=== PATIENT | female | born 1975 | race Caucasian/White ===

== ENCOUNTER 2018-09-24 12:28 | Inpatient (IN) | payer OTHER, SELFPAY ==
[2018-09-24] VITALS (15 sets, daily range): BP systolic 135–157; BP diastolic 79–91; PULSE 104–130; RESP 16–20; TEMP 37.3–39.7; O2SAT 95–96; BMI 40.3; BMI 41.3
--- NOTE | 2018-09-24 13:27 | EKG12_ITS ---
Test Reason : FEVER Blood Pressure : / mmHG Vent. Rate : 122 BPM Atrial Rate : 122 BPM P-R Int : 168 ms QRS Dur : 092 ms QT Int : 298 ms P-R-T Axes : 033 -33 070 degrees QTc Int : 424 ms Sinus tachycardia Left axis deviation Abnormal ECG Confirmed by MITCHELL PRAKASH, MORENA ([id number]), commercial production editor FATOU DAO ([id number]) on 09/27/2018 7:53:20 AM Referred By: CASANDRA Confirmed By:MORENA MEDRANO MD
--- NOTE | 2018-09-24 13:27 | RAD_ITS ---
STUDY: X-RAY CHEST REASON FOR EXAM: Female, 42 years old. Fever since TECHNIQUE: AP COMPARISON: None. FINDINGS: Neck or EKG The lungs are clear and expanded. There is no demonstrated pleural abnormality. Normal size heart. Normal mediastinum and ferny. Normal visualized pulmonary arteries. Normal visualized aortic arch and descending thoracic aorta. Normal visualized thoracic spine. Normal visualized ribs, clavicles, and shoulders. There is no demonstrated abnormality of the visualized soft tissue structures of the upper abdomen. RAD/Chest 1 View (Portable) IMPRESSION: Nonacute portable x-ray examination of the chest. Electronically Signed: Enoch Rader MD at 14:01 EDT , Service support ,
[2018-09-24] MEDS: Acetaminophen 500 MG Tablet 1000 MG PO (13:43)
[2018-09-24] MEDS: 0.9% Normal Saline 1,000 ML 150 ML IV ×3 (13:45→23:13)
[2018-09-24 13:47] LABS: Absolute Lymphocyte Count 0.77 X10^3/ul (0.83-4.51); Absolute Neutrophil Count 12.4 X10^3/uL (2.0-7.7); Basophil# 0.01 X10^3/uL; Basophil% 0.1 % (0-1); Hematocrit 41.1 % (37-47); Hemoglobin 14.1 g/dl (12.0-15.0); Lymphocyte # 0.77 X10^3/ul (4.0); Lymphocyte % 5.4 % (19-41); Mean Corp Hgb Conc 34.3 g/gl (32-36); Mean Corpuscular Hgb 30.7 pg (27.0-32.0); Mean Corpuscular Volume 89.5 fL (81-99); Mean Platelet Vol. 9.6 fl (6.2-12.0); Monocyte# 0.92 X10^3/uL; Monocyte% 6.5 % (0-10); Neutrophil # 12.39 X10^3/uL (2.7-7.7); Neutrophil % 87.7 % (47-70); Platelet Count 178 K/mm3 (150-450); RBC Distribution Width CV 13.4 % (11.6-14.6); RBC Distribution Width SD 43.9 fl (35.1-43.9); Red Blood Count 4.59 M/mm3 (4.2-5.4); White Blood Count 14.1 K/mm3 (4.4-11.0)
[2018-09-24 13:51] LABS: International Normalized Ratio 1.2; Prothrombin Time (Protime)PT. 14.6 SECONDS (11.7-14.9)
[2018-09-24 13:51] LABS: Bacteria 0 SEEN /hpf (None Seen); Color, Urine Yellow (Yellow); Glucose, Dipstick Normal (Normal); Leukocyte Esterase-Dipstick 25 /ul (Negative); Mucous, Urine 0 SEEN /hpf (<or=2+); Nitrite-Dipstick Negative (Negative); Occult Blood-Urine 50 /ul (Negative); Protein-Dipstick 100 mg/dl (Negative); Red Blood Cells-Urine 0 SEEN /hpf (0-5); Urine Clarity Clear (Clear); Urine Urobilinogen 12 mg/dl (Normal); Urine pH 6.5 (5.0 - 8.0); White Blood Cells 0 SEEN /hpf (0-5)
[2018-09-24 13:52] LABS: Partial Thromboplast Time 30.2 Seconds (24.1-36.2)
[2018-09-24 13:57] LABS: Urine Bilirubin Dipstick 1 mg/dL (Negative)
[2018-09-24 13:58] LABS: Ketone-Dipstick 150 mg/dl (Negative)
[2018-09-24 14:00] LABS: ALB/GLOB Ratio 0.7 RATIO (0.9-2.4); AST(SGOT) 15 U/L (15-37); Alanine Aminotransfer ALT/SGPT 26 U/L (13-56); Albumin, Serum 3.2 g/dL (3.2-5.0); Alkaline Phosphatase 80 U/L (45-117); Anion Gap 6 (5-15); BUN 9 mg/dL (7-18); BUN/Creat Ratio 8.6 RATIO (10-20); Calcium,Total 8.5 mg/dL (8.5-10.1); Chloride 99 mmol/L (98-107); Creatinine, Serum 1.05 mg/dL (0.55-1.02); EST Glomerular Filtration Rate 61 mL/min (>60); Est Glom Filt Rate - Afr Amer 74 mL/min (>60); Estimated Creatinine Clearance 66.67 ml/min; Globulin 4.6 g/dL (2.2-4.2); Glucose 117 mg/dL (74-106); POSITIVE COUNT NO; POSITIVE DIFFERENTIAL NO; POSITIVE MORPHOLOGY NO; Potassium 3.5 mmol/L (3.5-5.1); Protein, Total 7.8 g/dL (6.4-8.2); Sodium Level 131 mmol/L (136-145)
[2018-09-24 14:00] LABS: Squamous Epithelial Cells - UA 5-10 SEEN /hpf (5-10)
--- NOTE | 2018-09-24 14:01 | ED.VISSUMM ---
- ER Visit Summary Date of Service: 09/24/18 Chief Complaint: Fever History of Present Illness: The patient is a 42 F who states that on evening she began to have a fever and chills. She states she is been trying to drink fluids but has not had much of an appetite. This morning fever continued and she noticed a large area of redness on the right lower extremity. She states that she believes she nicked herself shaving but that has been several days ago. Physical Examination: Patient is febrile 103.4 she is tachycardic at 122. Stable blood pressure 157/89 pulse ox 95% respirations are even and unlabored at 18 Gen: Well-nourished well-developed obese Head: Normocephalic atraumatic Eyes: Perrl EOMI ENT: TMs clear no rhinorrhea moist mucous membranes Neck: Supple no lymphadenopathy no JVD nontender CVS: Regular rate rhythm no murmurs normal S1-S2 Respiratory: No distress clear to auscultation bilaterally chest nontender Abdomen: Soft nontender nondistended normal bowel sounds no masses Back: Nontender Extremity: There is erythema of most of the skin of the right lower extremity. This does not involve the foot. There is also an area of erythema over the proximal lateral thigh. There are no bullae seen. Skin: Normal color no rash Neuro: alert orientated ?3 CN II-XII intact normal strength sensation reflexes gait cerebellar Psych: Normal affect normal mood Test Results: White count is elevated at 14. Creatinine 1.05. Lactic acid 1.5. Chest x-ray negative. Urinalysis showed ketones but no obvious infection. Blood cultures obtained. Emergency Department Course and Treatment: Patient received Tylenol and IV fluids. I do not have ability to obtain duplex ultrasound imaging of the leg for clot at the current time. Patient received vancomycin. In speaking with the patient she is concerned about worsening at home and her ability to rest with her children. Hospitalist has been contacted. Impression: 1. Right lower extremity cellulitis 2. Sepsis This note was generated with [employer] dictation software. It may contain incorrect words, spelling, and punctuation that were not noted in review of the chart prior to signing ED Disposition - Plan for ED Patient: Disposition: [facility]
--- NOTE | 2018-09-24 14:02 | ED.RN ---
URINE KETONES 150, DR. GUAJARDO AWARE.
[2018-09-24 14:21] LABS: Lactic Acid 1.5 mmol/L (0.4-2.0)
[2018-09-24] MEDS: 0.9% Normal Saline 1,000 ML 999 ML IV (14:43)
--- NOTE | 2018-09-24 14:49 | CT_ITS ---
STUDY: CT RIGHT RIGHT LOWER LEG WITH CONTRAST REASON FOR EXAM: Female, 42 years old. RADIATION DOSAGE (If Supplied By Facility): CTDIvol = ( 15.35 ) mGy, DLP = ( 1053.88 ) mGycm TECHNIQUE: Transaxial CT imaging of the knee was performed post contrast administration. The examination was performed with intravenous administration of 100 IV Isovue 370. Sagittal and coronal reformatted images provided. Individualized dose optimization techniques were used for this CT. COMPARISON: None. FINDINGS: Normal medial femoral condyle and medial tibial plateau. There is preservation of the articular joint space of the medial knee compartment. Normal lateral femoral condyle and lateral tibial plateau. There is preservation of the articular joint space of the lateral knee compartment. Normal proximal tibiofibular articulation. There is no joint effusion. There is no demonstrated abnormal enhancement. The quadriceps tendon is grossly normal. The patellar tendon is grossly normal. Normal Hoffa's fat pad. The tibia and fibula are intact without evidence of fracture or destructive bony process. There is soft tissue swelling of the anterior lower leg extending from the level of the patellar tendon insertion inferiorly to the ankle with some extension into the medial/lateral/posterior soft tissues more distally. No focal fluid collection is seen. Limited assessment of the infrapopliteal veins show filling defects within the right posterior tibial vein suggesting possibility of deep vein thrombosis. CT/Extremity Lower WITH Contrast IMPRESSION: 1. Nonspecific anterior dominant soft tissue swelling without focal fluid collection. 2. Possible infrapopliteal (posterior tibial) vein thrombus. Correlation with Doppler ultrasound is suggested. 3. No fracture, malalignment or destructive bony process. Electronically Signed: Enoch Rader MD at 15:47 EDT , Service support ,
--- NOTE | 2018-09-24 14:58 | PCM.HP.STD ---
History of Present Illness Date of Admission: 09/24/18 Chief Complaint: fever, chills, redness and swelling of RLE The patient is a 42 year old F with no significant past medical history. She was admitted to the ED on 09/24/2018 with a 2-day complaint of fever and chills as well as redness and swelling of her right lower extremity. Patient states fever and chills started and then 1 day ago she noticed the rash on her right lower extremity. Today she noticed that her right lower extremity was red and swollen. She did not notice any discharge. She also had assisted shortness of breath and racing of her heart so she decided to come into the ED. In the ED vitals were significant for temperature of 103.2 Fahrenheit, respiratory rate of 20 and pulse rate of 120. Chest x-ray showed no acute cardiopulmonary process. CMP showed sodium of 131 white cell count was elevated at 14. Lactic acid was 1.5. She has been admitted to be managed for sepsis due to cellulitis of the right lower extremity. 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 Denies: Anorexia, Weakness, Fatigue Eyes: Denies: Blurred vision HEENT: Denies: Head Aches, Sinus Congestion, Sinus Drainage Cardiovascular: Denies: Chest Pain, Palpitations Respiratory: Denies: Cough, Shortness of Breath, Shortness of breath at rest, Shortness of breath upon exertion, Sputum production Gastrointestinal: Denies: Abdominal Pain, Nausea, Vomiting Genitourinary: Denies: Dysuria Musculoskeletal: Denies: Joint Pain, Joint Tenderness Skin: Reports: Rash, Skin Changes Neurological: Denies: Numbness, Tingling, Focal weakness Psychiatric: Denies: Anxiety, Depression, Homicidal Ideations, Suicidal Ideations Hematologic/ Lymphatic: Denies: Easy Bruising, Easy Bleeding VTE Information - Inpt Only VTE Present on Admission: No VTE Pharm Prophylaxis ordered?: Yes - Physical Exam General: Alert, Oriented x3, Cooperative, No apparent distress HEENT: Atraumatic Oral: Moist Mucosa Neck: Supple, No JVD, Negative Carotid Bruits Lungs: Clear to auscultation, Normal air movement Cardiovascular: Regular rate, Regular Rhythm, Normal S1, Normal S2, No murmurs Abdomen: Bowel Sounds Present, Soft, Non Tender Extremities: No clubbing, No cyanosis, Capillary Refill Less than 3 Seconds, - - mild edema of RLE Skin: - - erythema and papular rash over her RLE (armstrong and calf) as well as over her right upper thigh. No visible discharge. Musculoskeletal: No Tenderness to Palpation of Joints or Extremities Lymphatic: No Cervical, Supraclavicular, or Inguinal Adenopathy Neurological: Cranial nerves II-XII grossly intact, Neuro grossly intact, Motor Exam 5/5 strength throughout Psych/Mental Status: Normal Affect, Appropriate, Alert and oriented to time, place, person, mood and affect Vital Signs Temp Pulse Resp BP Pulse Ox 103.2 F H 120 H 20 H 152/91 H 95 09/24/18 14:44 09/24/18 14:44 09/24/18 14:44 09/24/18 14:44 09/24/18 14:44 Oxygen Delivery Method Room Air Weight: 250 lb Body Mass Index (BMI) 40.3 Laboratory Tests Past 24 Hrs 09/24/18 09/24/18 09/24/18 12:45 13:32 13:32 WBC 14.1 H RBC 4.59 Hgb 14.1 Hct 41.1 MCV 89.5 MCH 30.7 MCHC 34.3 RDW 13.4 RDW Differential 43.9 Plt Count 178 MPV 9.6 Immature Gran % (Auto) 0.300 Neut % (Auto) 87.7 H Lymph % (Auto) 5.4 L [place] % (Auto) 6.5 Eos % (Auto) 0.0 Baso % (Auto) 0.1 Absolute Neuts (auto) 12.4 H Absolute Lymphs (auto) 0.77 L Total Counted Not Reportable PT 14.6 INR 1.2 APTT 30.2 Sodium Potassium Chloride Carbon Dioxide Anion Gap BUN Creatinine Estim Creat Clear Calc Est GFR (MDRD) Af Amer Est GFR (MDRD) Non-Af BUN/Creatinine Ratio Glucose Lactic Acid Calcium Total Bilirubin AST ALT Alkaline Phosphatase Troponin I Total Protein Albumin Globulin Albumin/Globulin Ratio Urine Color Yellow Urine Clarity Clear Urine pH 6.5 Ur Specific [place] 1.010 Urine Protein 100 H Urine Glucose (UA) Normal Urine Ketones 150 H Urine Occult Blood 50 H Urine Nitrite Negative Urine Bilirubin 1 H Urine Urobilinogen 12 H Ur Leukocyte Esterase 25 H Urine RBC 0 SEEN Urine WBC 0 SEEN Ur Squamous Epith Cells 5-10 SEEN Urine Bacteria 0 SEEN Urine Mucus 0 SEEN 09/24/18 09/24/18 13:32 13:32 WBC RBC Hgb Hct MCV MCH MCHC RDW RDW Differential Plt Count MPV Immature Gran % (Auto) Neut % (Auto) Lymph % (Auto) [place] % (Auto) Eos % (Auto) Baso % (Auto) Absolute Neuts (auto) Absolute Lymphs (auto) Total Counted PT INR APTT Sodium 131 L Potassium 3.5 Chloride 99 Carbon Dioxide 26.0 Anion Gap 6 BUN 9 Creatinine 1.05 H Estim Creat Clear Calc 66.67 Est GFR (MDRD) Af Amer 74 Est GFR (MDRD) Non-Af 61 BUN/Creatinine Ratio 8.6 L Glucose 117 H Lactic Acid 1.5 Calcium 8.5 Total Bilirubin 0.50 AST 15 ALT 26 Alkaline Phosphatase 80 Troponin I < 0.015 Total Protein 7.8 Albumin 3.2 Globulin 4.6 H Albumin/Globulin Ratio 0.7 L Urine Color Urine Clarity Urine pH Ur Specific [place] Urine Protein Urine Glucose (UA) Urine Ketones Urine Occult Blood Urine Nitrite Urine Bilirubin Urine Urobilinogen Ur Leukocyte Esterase Urine RBC Urine WBC Ur Squamous Epith Cells Urine Bacteria Urine Mucus Assessment/Plan 42-year-old female admitted with a complaint of right lower extremity swelling, fever and chills. 1. Sepsis due to cellulitis of the RLE admit to PCU with telemetry SIRS criteria is 4/4 (fever, tachypnea, tachycardia, leucocytosis). Get blood cultures. WIll get Ct of RLE to assess for possible abscess o/a of rapid swelling and onset of symptoms Keep the right lower extremity elevated. Duplex of the right lower extremity. IV vancomycin. Tylenol as needed for fever. 2. Hyponatremia: Sodium is 131. Likely due to hypovolemic hyponatremia. Will hydrate with IV load and monitor. 3. Elevated creatinine: Does not meet criteria for LEXUS. Creatinine is 1.05. Will hydrate with IV fluids and monitor. DVT prophylaxis: Lovenox Code Visit Inpatient E&M: 84896 Init Hosp L3
--- NOTE | 2018-09-24 15:04 | HP.PCM_ITS ---
History of Present Illness Date of Admission: 09/24/18 Chief Complaint: fever, chills, redness and swelling of RLE The patient is a 42 year old F with no significant past medical history. She was admitted to the ED on 09/24/2018 with a 2-day complaint of fever and chills as well as redness and swelling of her right lower extremity. Patient states fever and chills started and then 1 day ago she noticed the rash on her right lower extremity. Today she noticed that her right lower extremity was red and swoll en. She did not notice any discharge. She also had assisted shortness of breath and racing of her heart so she decided to come into the ED. In the ED vitals were significant for temperature of 103.2 Fahrenheit, respiratory rate of 20 and pulse rate of 120. Chest x-ray showed no acute cardiopulmonary process. CMP showed sodium of 131 white cell count was elevated at 14. Lactic acid was 1.5. She has been admitted to be managed for sepsis due to cellulitis of the right lower extremity. 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 Denies: Anorexia, Weakness, Fatigue Eyes: Denies: Blurred vision HEENT: Denies: Head Aches, Sinus Congestion, Sinus Drainage Cardiovascular: Denies: Chest Pain, Palpitations Respiratory: Denies: Cough, Shortness of Breath, Shortness of breath at rest, Shortness of breath upon exertion, Sputum production Gastrointestinal: Denies: Abdominal Pain, Nausea, Vomiting Genitourinary: Denies: Dysuria Musculoskeletal: Denies: Joint Pain, Joint Tenderness Skin: Reports: Rash, Skin Changes Neurological: Denies: Numbness, Tingling, Focal weakness Psychiatric: Denies: Anxiety, Depression, Homicidal Ideations, Suicidal Ideations Hematologic/ Lymphatic: Denies: Easy Bruising, Easy Bleeding VTE Information - Inpt Only VTE Present on Admission: No VTE Pharm Prophylaxis ordered?: Yes - Physical Exam General: Alert, Oriented x3, Cooperative, No apparent distress HEENT: Atraumatic Oral: Moist Mucosa Neck: Supple, No JVD, Negative Carotid Bruits Lungs: Clear to auscultation, Normal air movement Cardiovascular: Regular rate, Regular Rhythm, Normal S1, Normal S2, No murmurs Abdomen: Bowel Sounds Present, Soft, Non Tender Extremities: No clubbing, No cyanosis, Capillary Refill Less than 3 Seconds, - - mild edema of RLE Skin: - - erythema and papular rash over her RLE (armstrong and calf) as well as over her right upper thigh. No visible discharge. Musculoskeletal: No Tenderness to Palpation of Joints or Extremities Lymphatic: No Cervical, Supraclavicular, or Inguinal Adenopathy Neurological: Cranial nerves II-XII grossly intact, Neuro grossly intact, Motor Exam 5/5 strength throughout Psych/Mental Status: Normal Affect, Appropriate, Alert and oriented to time, place, person, mood and affect Vital Signs Temp Pulse Resp BP Pulse Ox 103.2 F H 120 H 20 H 152/91 H 95 09/24/18 14:44 09/24/18 14:44 09/24/18 14:44 09/24/18 14:44 09/24/18 14:44 Oxygen Delivery Method Room Air Weight: 250 lb Body Mass Index (BMI) 40.3 Laboratory Tests Past 24 Hrs 09/24/18 09/24/18 09/24/18 12:45 13:32 13:32 WBC 14.1 H RBC 4.59 Hgb 14.1 Hct 41.1 MCV 89.5 MCH 30.7 MCHC 34.3 RDW 13.4 RDW Differential 43.9 Plt Count 178 MPV 9.6 Immature Gran % (Auto) 0.300 Neut % (Auto) 87.7 H Lymph % (Auto) 5.4 L [place] % (Auto) 6.5 Eos % (Auto) 0.0 Baso % (Auto) 0.1 Absolute Neuts (auto) 12.4 H Absolute Lymphs (auto) 0.77 L Total Counted Not Reportable PT 14.6 INR 1.2 APTT 30.2 Sodium Potassium Chloride Carbon Dioxide Anion Gap BUN Creatinine Estim Creat Clear Calc Est GFR (MDRD) Af Amer Est GFR (MDRD) Non-Af BUN/Creatinine Ratio Glucose Lactic Acid Calcium Total Bilirubin AST ALT Alkaline Phosphatase Troponin I Total Protein Albumin Globulin Albumin/Globulin Ratio Urine Color Yellow Urine Clarity Clear Urine pH 6.5 Ur Specific [place] 1.010 Urine Protein 100 H Urine Glucose (UA) Normal Urine Ketones 150 H Urine Occult Blood 50 H Urine Nitrite Negative Urine Bilirubin 1 H Urine Urobilinogen 12 H Ur Leukocyte Esterase 25 H Urine RBC 0 SEEN Urine WBC 0 SEEN Ur Squamous Epith Cells 5-10 SEEN Urine Bacteria 0 SEEN Urine Mucus 0 SEEN 09/24/18 09/24/18 13:32 13:32 WBC RBC Hgb Hct MCV MCH MCHC RDW RDW Differential Plt Count MPV Immature Gran % (Auto) Neut % (Auto) Lymph % (Auto) [place] % (Auto) Eos % (Auto) Baso % (Auto) Absolute Neuts (auto) Absolute Lymphs (auto) Total Counted PT INR APTT Sodium 131 L Potassium 3.5 Chloride 99 Carbon Dioxide 26.0 Anion Gap 6 BUN 9 Creatinine 1.05 H Estim Creat Clear Calc 66.67 Est GFR (MDRD) Af Amer 74 Est GFR (MDRD) Non-Af 61 BUN/Creatinine Ratio 8.6 L Glucose 117 H Lactic Acid 1.5 Calcium 8.5 Total Bilirubin 0.50 AST 15 ALT 26 Alkaline Phosphatase 80 Troponin I < 0.015 Total Protein 7.8 Albumin 3.2 Globulin 4.6 H Albumin/Globulin Ratio 0.7 L Urine Color Urine Clarity Urine pH Ur Specific [place] Urine Protein Urine Glucose (UA) Urine Ketones Urine Occult Blood Urine Nitrite Urine Bilirubin Urine Urobilinogen Ur Leukocyte Esterase Urine RBC Urine WBC Ur Squamous Epith Cells Urine Bacteria Urine Mucus Assessment/Plan 42-year-old female admitted with a complaint of right lower extremity swelling, fever and chills. 1. Sepsis due to cellulitis of the RLE * admit to PCU with telemetry * SIRS criteria is 4/4 (fever, tachypnea, tachycardia, leucocytosis). * Get blood cultures. WIll get Ct of RLE to assess for possible abscess o/a of rapid swelling and onset of symptoms * Keep the right lower extremity elevated. Duplex of the right lower extremity. * IV vancomycin. * Tylenol as needed for fever. * 2. Hyponatremia: Sodium is 131. Likely due to hypovolemic hyponatremia. Will hydrate with IV load and monitor. 3. Elevated creatinine: Does not meet criteria for LEXUS. Creatinine is 1.05. Will hydrate with IV fluids and monitor. DVT prophylaxis: Lovenox Code Visit Inpatient E&M: 58598 Init Hosp L3
[2018-09-24] MEDS: Vancomycin IV 1,000 MG/200 ML BAG 200 MG IV ×2 (16:32→17:38)
[2018-09-24] MEDS: Enoxaparin 120 MG/0.8 ML Syringe SC (20:55)
[2018-09-24] MEDS: Acetaminophen 325 MG Tablet 650 MG PO (20:56)
[2018-09-25] VITALS (13 sets, daily range): BP systolic 119–160; BP diastolic 70–90; PULSE 96–116; RESP 18–28; TEMP 35.6–38.1; O2SAT 95–97
[2018-09-25] MEDS: Acetaminophen 325 MG Tablet 650 MG PO ×3 (05:56→20:28)
[2018-09-25] MEDS: 0.9% Normal Saline 1,000 ML 150 ML IV ×3 (06:42→23:59)
[2018-09-25 07:05] LABS: Absolute Lymphocyte Count 1.34 X10^3/ul (0.83-4.51); Absolute Neutrophil Count 8.9 X10^3/uL (2.0-7.7); Basophil# 0.01 X10^3/uL; Basophil% 0.1 % (0-1); Hematocrit 34.6 % (37-47); Hemoglobin 11.6 g/dl (12.0-15.0); Lymphocyte # 1.34 X10^3/ul (4.0); Lymphocyte % 11.9 % (19-41); Mean Corp Hgb Conc 33.5 g/gl (32-36); Mean Corpuscular Hgb 30.2 pg (27.0-32.0); Mean Corpuscular Volume 90.1 fL (81-99); Mean Platelet Vol. 9.5 fl (6.2-12.0); Monocyte# 0.98 X10^3/uL; Monocyte% 8.7 % (0-10); Neutrophil # 8.94 X10^3/uL (2.7-7.7); Platelet Count 165 K/mm3 (150-450); RBC Distribution Width CV 13.7 % (11.6-14.6); RBC Distribution Width SD 45.1 fl (35.1-43.9); Red Blood Count 3.84 M/mm3 (4.2-5.4); White Blood Count 11.3 K/mm3 (4.4-11.0)
--- NOTE | 2018-09-25 07:13 | VDLE_ITS ---
Reason For Study: SWELLING RIGHT GSV is normal. CFV is compressible, spontaneous, phasic, competent and demonstrates normal augmentation. FV is compressible, spontaneous, phasic, competent and demonstrates normal augmentation. POP V is compressible, spontaneous, phasic, competent and demonstrates normal augmentation. T/P Trunk is compressible. PTV is compressible. RT PerV is compressible. Procedure Exam performed portable in patient room. A preliminary report was called and/or faxed to [facility]. Interpretation Summary Deep veins of the right lower extremity are patent and compressible segmentally. There is no evidence of right lower extremity deep vein thrombosis. Valvular competence appears intact within the proximal deep venous system on the right . The right greater saphenous vein appears patent and compressible segmentally. Ordering Physician: Edwina Chapman Referring Physician: JENA MARTELL Performed By: Comfort Martinez, RICHA, RVT
[2018-09-25 07:14] LABS: POSITIVE COUNT NO; POSITIVE DIFFERENTIAL NO; POSITIVE MORPHOLOGY NO
[2018-09-25 07:29] LABS: Anion Gap 6 (5-15); BUN 7 mg/dL (7-18); BUN/Creat Ratio 9.2 RATIO (10-20); Calcium,Total 7.8 mg/dL (8.5-10.1); Chloride 106 mmol/L (98-107); Creatinine, Serum 0.76 mg/dL (0.55-1.02); EST Glomerular Filtration Rate 89 mL/min (>60); Est Glom Filt Rate - Afr Amer 107 mL/min (>60); Estimated Creatinine Clearance 92.11 ml/min; Glucose 141 mg/dL (74-106); Potassium 3.5 mmol/L (3.5-5.1); Sodium Level 138 mmol/L (136-145)
--- NOTE | 2018-09-25 08:01 | CT_ITS ---
STUDY: CTA CHEST REASON FOR EXAM: Female, 42 years old. Shortness of breath. Deep venous thrombosis. RADIATION DOSAGE (If Supplied By Facility): CTDIvol = ( 18.04 ) mGy, DLP = ( 682.49 ) mGycm TECHNIQUE: The examination was performed with the intravenous administration of 100 IV Isovue 300. Post-processing of the angiographic images was performed, with multiplanar reformation and 3D reconstruction. Individualized dose optimization techniques were used for this CT. COMPARISON: Chest x-ray September 24, 2018. FINDINGS: There is limited enhancement of the main pulmonary artery and right and left pulmonary arteries. There is limited enhancement of the bilateral peripheral pulmonary arteries. There are heterogeneous diminished density regions with embolism versus artifact associated with breathing motion and poor contrast enhancement. Normal thoracic aorta and visualized great vessels. There is no demonstrated aortic dissection. Normal heart and pericardium. Normal mediastinum. Normal hilar regions. Normal visualized trachea and bronchi. The lungs are well expanded. Normal pulmonary parenchyma. Normal pleura. Normal chest wall structures. Normal osseous structures. Normal visualized upper abdomen. CT/CTA Chest W/WO Contrast IMPRESSION: Suboptimal enhancement and heterogeneous diminished densities of the pulmonary arteries with embolism versus artifact. No focal infiltrate. Electronically Signed: Panfilo Glasgow MD at 8:53 EDT , Service support ,
[2018-09-25] MEDS: 0.9% NaCl Peripheral Flush Adult/Peds IV (08:07)
[2018-09-25 09:05] LABS: Hemoglobin A1c 5.6 % (4.2-6.3)
--- NOTE | 2018-09-25 10:24 | PCM.PN.HOSP ---
Subjective: Patient seen and examined. She feels much better today. She thinks fever has broken. She denies any chest pain or palpitations, dizziness, and swelling and redness in her leg is much better. Labs and vitals reviewed. She still remains tachycardic and tachypneic though she does not feel it. Temperature peaked at 100.5 Fahrenheit early this morning. Vitals/I&O's: Vital Signs Temp Pulse Resp BP Pulse Ox 96.1 F L 96 22 H 136/90 H 96 09/25/18 09:55 09/25/18 09:55 09/25/18 09:55 09/25/18 09:55 09/25/18 09:55 Oxygen Delivery Method Room Air Weight: 255 lb 15.307 oz Body Mass Index (BMI) 41.3 Intake and Output for Last 24 Hours 09/23/18 09/24/18 09/25/18 23:59 23:59 23:59 Intake Total 2131 / 2131 1432 / 1432 Balance 2131 / 2131 1432 / 1432 General: Alert, Oriented x3, Cooperative, No apparent distress HEENT: Atraumatic Oral: Moist Mucosa Neck: Supple, No JVD, Negative Carotid Bruits Lungs: Clear to auscultation, Normal air movement, tachypneic. Cardiovascular: tachycardic, Regular Rhythm, Normal S1, Normal S2, No murmurs Abdomen: Bowel Sounds Present, Soft, Non Tender Extremities: No clubbing, No cyanosis, Capillary Refill Less than 3 Seconds, - - mild edema of RLE Skin: - - erythema and papular rash over her RLE (armstrong and calf) as well as over her right upper thigh. Have improved significantly. Minimal calf tenderness. No visible discharge. Musculoskeletal: No Tenderness to Palpation of Joints or Extremities Lymphatic: No Cervical, Supraclavicular, or Inguinal Adenopathy Neurological: Cranial nerves II-XII grossly intact, Neuro grossly intact, Motor Exam 5/5 strength throughout Psych/Mental Status: Normal Affect, Appropriate, Alert and oriented to time, place, person, mood and affect Laboratory Results 09/24/18 12:45: Urine Color Yellow, Urine Clarity Clear, Urine pH 6.5, Ur Specific [place] 1.010, Urine Protein 100 H, Urine Glucose (UA) Normal, Urine Ketones 150 H, Urine Occult Blood 50 H, Urine Nitrite Negative, Urine Bilirubin 1 H, Urine Urobilinogen 12 H, Ur Leukocyte Esterase 25 H, Urine RBC 0 SEEN, Urine WBC 0 SEEN, Ur Squamous Epith Cells 5-10 SEEN, Urine Bacteria 0 SEEN, Urine Mucus 0 SEEN 09/24/18 13:32: WBC 14.1 H, RBC 4.59, Hgb 14.1, Hct 41.1, MCV 89.5, MCH 30.7, MCHC 34.3, RDW 13.4, RDW Differential 43.9, Plt Count 178, MPV 9.6, Immature Gran % (Auto) 0.300, Neut % (Auto) 87.7 H, Lymph % (Auto) 5.4 L, [place] % (Auto) 6.5, Eos % (Auto) 0.0, Baso % (Auto) 0.1, Absolute Neuts (auto) 12.4 H, Absolute Lymphs (auto) 0.77 L, Total Counted Not Reportable 09/24/18 13:32: PT 14.6, INR 1.2, APTT 30.2 09/24/18 13:32: Sodium 131 L, Potassium 3.5, Chloride 99, Carbon Dioxide 26.0, Anion Gap 6, BUN 9, Creatinine 1.05 H, Estim Creat Clear Calc 66.67, Est GFR (MDRD) Af Amer 74, Est GFR (MDRD) Non-Af 61, BUN/Creatinine Ratio 8.6 L, Glucose 117 H, Calcium 8.5, Total Bilirubin 0.50, AST 15, ALT 26, Alkaline Phosphatase 80, Troponin I < 0.015, Total Protein 7.8, Albumin 3.2, Globulin 4.6 H, Albumin/Globulin Ratio 0.7 L 09/24/18 13:32: Lactic Acid 1.5 09/25/18 06:08: WBC 11.3 H, RBC 3.84 L, Hgb 11.6 L, Hct 34.6 L, MCV 90.1, MCH 30.2, MCHC 33.5, RDW 13.7, RDW Differential 45.1 H, Plt Count 165, MPV 9.5, Immature Gran % (Auto) 0.300, Neut % (Auto) 79.0 H, Lymph % (Auto) 11.9 L, [place] % (Auto) 8.7, Eos % (Auto) 0.0, Baso % (Auto) 0.1, Absolute Neuts (auto) 8.9 H, Absolute Lymphs (auto) 1.34, Total Counted Not Reportable 09/25/18 06:08: Sodium 138, Potassium 3.5, Chloride 106, Carbon Dioxide 26.0, Anion Gap 6, BUN 7, Creatinine 0.76, Estim Creat Clear Calc 92.11, Est GFR (MDRD) Af Amer 107, Est GFR (MDRD) Non-Af 89, BUN/Creatinine Ratio 9.2 L, Glucose 141 H, Calcium 7.8 L 09/25/18 06:08: Hemoglobin A1c 5.6 Diagnostic Data Chest X-Ray 09/24/18 13:27 IMPRESSION: Nonacute portable x-ray examination of the chest. Electronically Signed: Enoch Rader MD at 14:01 EDT , Service support , Lower Extremity CT 09/24/18 14:49 IMPRESSION: 1. Nonspecific anterior dominant soft tissue swelling without focal fluid collection. 2. Possible infrapopliteal (posterior tibial) vein thrombus. Correlation with Doppler ultrasound is suggested. 3. No fracture, malalignment or destructive bony process. Electronically Signed: Enoch Rader MD at 15:47 EDT , Service support , Chest CTA 09/25/18 08:01 IMPRESSION: Suboptimal enhancement and heterogeneous diminished densities of the pulmonary arteries with embolism versus artifact. No focal infiltrate. Electronically Signed: Panfilo Glasgow MD at 8:53 EDT , Service support , Current Medications Acetaminophen (Tylenol) 650 mg PO Q6H PRN PRN PRN Reason: Mild Pain (1-3)/Temp > 100.7 F Last Admin: 09/25/18 05:56 Dose: 650 mg Dextrose (D50w Syringe) 0 gm IV X1 PRN; Protocol PRN Reason: Hypoglycemia Glucagon () 1 mg IM .X1 PRN PRN Reason: Hypoglycemia Sodium Chloride () 1,000 mls @ 150 mls/hr IV .Q6H40M [facility] Last Admin: 09/25/18 06:42 Dose: 150 mls/hr Vancomycin IV Pharmacy to Dose (1 ea/ Sodium Chloride) 500 mls @ 250 mls/hr IV X1 PRN; Protocol PRN Reason: Rx to Dose Vancomycin IV Pharmacy to Dose (1 ea/ Sodium Chloride) 500 mls @ 250 mls/hr IV X1 PRN; Protocol PRN Reason: Rx to Dose Vancomycin HCl 1,500 mg/ (Sodium Chloride) 530 mls @ 250 mls/hr IV Q12H [facility] Last Admin: 09/25/18 04:46 Dose: 250 mls/hr Sodium Chloride () 5 - 15 ml IV UD PRN PRN Reason: SALINE FLUSH Last Admin: 09/25/18 08:07 Dose: 10 ml Medical Necessity - Tobacco Use Smoking Status: Former smoker Assessment/Plan 42-year-old female admitted with a complaint of right lower extremity swelling, fever and chills. 1. Sepsis due to cellulitis of the RLE SIRS criteria is 2/4 today- still tachypneic and tachycardic. leucocytosis is improving, and is down to 11.[address] of the RLE showed no evidence of abscess but did show possible DVT in right posterior tibial vein. received one dose of SC lovenox 120mg once. CTA chest: suboptimal enhancemdnad n heterogenous diminished densities of the pulmonary arteris with embolism vs infarct on IV vancomycin 2. ?PE and RLE DVT CT of the RLE as under 1. CT of the chest as under 1. received tone therapeutic dose of lovenox will continue therapeutic lovenox; review CT images with radiology tomorrow, as radiologist is not here today. 3. Hyponatremia: resolved. Na is 138 today. 4. Elevated creatinine: Resolved. Cr is down to 0.76 DVT prophylaxis: Lovenox Code Visit Inpatient E&M: 01664 [facility] Hosp L3
--- NOTE | 2018-09-25 10:28 | PN_ITS ---
Subjective: Patient seen and examined. She feels much better today. She thinks fever has broken. She denies any chest pain or palpitations, dizziness, and swelling and redness in her leg is much better. Labs and vitals reviewed. She still remains tachycardic and tachypneic though she does not feel it. Temperature peaked at 100.5 Fahrenheit early this morning. Vitals/I&O's: Vital Signs Temp Pulse Resp BP Pulse Ox 96.1 F L 96 22 H 136/90 H 96 09/25/18 09:55 09/25/18 09:55 09/25/18 09:55 09/25/18 09:55 09/25/18 09:55 Oxygen Delivery Method Room Air Weight: 255 lb 15.307 oz Body Mass Index (BMI) 41.3 Intake and Output for Last 24 Hours 09/23/18 09/24/18 09/25/18 23:59 23:59 23:59 Intake Total 2131 / 2131 1432 / 1432 Balance 2131 / 2131 1432 / 1432 General: Alert, Oriented x3, Cooperative, No apparent distress HEENT: Atraumatic Oral: Moist Mucosa Neck: Supple, No JVD, Negative Carotid Bruits Lungs: Clear to auscultation, Normal air movement, tachypneic. Cardiovascular: tachycardic, Regular Rhythm, Normal S1, Normal S2, No murmurs Abdomen: Bowel Sounds Present, Soft, Non Tender Extremities: No clubbing, No cyanosis, Capillary Refill Less than 3 Seconds, - - mild edema of RLE Skin: - - erythema and papular rash over her RLE (armstrong and calf) as well as over her right upper thigh. Have improved significantly. Minimal calf tenderness. No visible discharge. Musculoskeletal: No Tenderness to Palpation of Joints or Extremities Lymphatic: No Cervical, Supraclavicular, or Inguinal Adenopathy Neurological: Cranial nerves II-XII grossly intact, Neuro grossly intact, Motor Exam 5/5 strength throughout Psych/Mental Status: Normal Affect, Appropriate, Alert and oriented to time, place, person, mood and affect Laboratory Results 09/24/18 12:45: Urine Color Yellow, Urine Clarity Clear, Urine pH 6.5, Ur Specific [place] 1.010, Urine Protein 100 H, Urine Glucose (UA) Normal, Urine Ketones 150 H, Urine Occult Blood 50 H, Urine Nitrite Negative, Urine Bilirubin 1 H, Urine Urobilinogen 12 H, Ur Leukocyte Esterase 25 H, Urine RBC 0 SEEN, Urine WBC 0 SEEN, Ur Squamous Epith Cells 5-10 SEEN, Urine Bacteria 0 SEEN, Urine Mucus 0 SEEN 09/24/18 13:32: WBC 14.1 H, RBC 4.59, Hgb 14.1, Hct 41.1, MCV 89.5, MCH 30.7, MCHC 34.3, RDW 13.4, RDW Differential 43.9, Plt Count 178, MPV 9.6, Immature Gran % (Auto) 0.300, Neut % (Auto) 87.7 H, Lymph % (Auto) 5.4 L, [place] % (Auto) 6.5, Eos % (Auto) 0.0, Baso % (Auto) 0.1, Absolute Neuts (auto) 12.4 H, Absolute Lymphs (auto) 0.77 L, Total Counted Not Reportable 09/24/18 13:32: PT 14.6, INR 1.2, APTT 30.2 09/24/18 13:32: Sodium 131 L, Potassium 3.5, Chloride 99, Carbon Dioxide 26.0, Anion Gap 6, BUN 9, Creatinine 1.05 H, Estim Creat Clear Calc 66.67, Est GFR (MDRD) Af Amer 74, Est GFR (MDRD) Non-Af 61, BUN/Creatinine Ratio 8.6 L, Glucose 117 H, Calcium 8.5, Total Bilirubin 0.50, AST 15, ALT 26, Alkaline Phosphatase 80, Troponin I < 0.015, Total Protein 7.8, Albumin 3.2, Globulin 4.6 H, Albumin/Globulin Ratio 0.7 L 09/24/18 13:32: Lactic Acid 1.5 09/25/18 06:08: WBC 11.3 H, RBC 3.84 L, Hgb 11.6 L, Hct 34.6 L, MCV 90.1, MCH 30.2, MCHC 33.5, RDW 13.7, RDW Differential 45.1 H, Plt Count 165, MPV 9.5, Immature Gran % (Auto) 0.300, Neut % (Auto) 79.0 H, Lymph % (Auto) 11.9 L, [place] % (Auto) 8.7, Eos % (Auto) 0.0, Baso % (Auto) 0.1, Absolute Neuts (auto) 8.9 H, Absolute Lymphs (auto) 1.34, Total Counted Not Reportable 09/25/18 06:08: Sodium 138, Potassium 3.5, Chloride 106, Carbon Dioxide 26.0, Anion Gap 6, BUN 7, Creatinine 0.76, Estim Creat Clear Calc 92.11, Est GFR (MDRD) Af Amer 107, Est GFR (MDRD) Non-Af 89, BUN/Creatinine Ratio 9.2 L, Glucose 141 H, Calcium 7.8 L 09/25/18 06:08: Hemoglobin A1c 5.6 Diagnostic Data Chest X-Ray 09/24/18 13:27 IMPRESSION: Nonacute portable x-ray examination of the chest. Electronically Signed: Enoch Rader MD at 14:01 EDT , Service support , Lower Extremity CT 09/24/18 14:49 IMPRESSION: 1. Nonspecific anterior dominant soft tissue swelling without focal fluid collection. 2. Possible infrapopliteal (posterior tibial) vein thrombus. Correlation with Doppler ultrasound is suggested. 3. No fracture, malalignment or destructive bony process. Electronically Signed: Enoch Rader MD at 15:47 EDT , Service support , Chest CTA 09/25/18 08:01 IMPRESSION: Suboptimal enhancement and heterogeneous diminished densities of the pulmonary arteries with embolism versus artifact. No focal infiltrate. Electronically Signed: Panfilo Glasgow MD at 8:53 EDT , Service support , Current Medications Acetaminophen (Tylenol) 650 mg PO Q6H PRN PRN PRN Reason: Mild Pain (1-3)/Temp > 100.7 F Last Admin: 09/25/18 05:56 Dose: 650 mg Dextrose (D50w Syringe) 0 gm IV X1 PRN; Protocol PRN Reason: Hypoglycemia Glucagon () 1 mg IM .X1 PRN PRN Reason: Hypoglycemia Sodium Chloride () 1,000 mls @ 150 mls/hr IV .Q6H40M [facility] Last Admin: 09/25/18 06:42 Dose: 150 mls/hr Vancomycin IV Pharmacy to Dose (1 ea/ Sodium Chloride) 500 mls @ 250 mls/hr IV X1 PRN; Protocol PRN Reason: Rx to Dose Vancomycin IV Pharmacy to Dose (1 ea/ Sodium Chloride) 500 mls @ 250 mls/hr IV X1 PRN; Protocol PRN Reason: Rx to Dose Vancomycin HCl 1,500 mg/ (Sodium Chloride) 530 mls @ 250 mls/hr IV Q12H [facility] Last Admin: 09/25/18 04:46 Dose: 250 mls/hr Sodium Chloride () 5 - 15 ml IV UD PRN PRN Reason: SALINE FLUSH Last Admin: 09/25/18 08:07 Dose: 10 ml Medical Necessity - Tobacco Use Smoking Status: Former smoker Assessment/Plan 42-year-old female admitted with a complaint of right lower extremity swelling, fever and chills. 1. Sepsis due to cellulitis of the RLE * SIRS criteria is 2/4 today- still tachypneic and tachycardic. leucocytosis is improving, and is down to 11.3 * blood cultures pending * CT of the RLE showed no evidence of abscess but did show possible DVT in right posterior tibial vein. * received one dose of SC lovenox 120mg once. * CTA chest: suboptimal enhancemdnad n heterogenous diminished densities of the pulmonary arteris with embolism vs infarct * on IV vancomycin * 2. ?PE and RLE DVT * CT of the RLE as under 1. CT of the chest as under 1. * received tone therapeutic dose of lovenox * will continue therapeutic lovenox; review CT images with radiology tomorrow, as radiologist is not here today. * 3. Hyponatremia: resolved. Na is 138 today. 4. Elevated creatinine: Resolved. Cr is down to 0.76 DVT prophylaxis: Lovenox Code Visit Inpatient E&M: 45522 Subs Hosp L3
--- NOTE | 2018-09-25 10:30 | PCM.RX.CS ---
Consult Pharmacy has been consulted to manage selected antiobiotic: Vancomycin Type of Consult: New start Suspected Infection: Skin/Soft tissue Labs: Sodium 138 mmol/L (136-145) 09/25/18 06:08 Potassium 3.5 mmol/L (3.5-5.1) 09/25/18 06:08 Chloride 106 mmol/L (98-107) 09/25/18 06:08 Carbon Dioxide 26.0 mmol/L (21.0-32.0) 09/25/18 06:08 Anion Gap 6 (5-15) 09/25/18 06:08 BUN 7 mg/dL (7-18) 09/25/18 06:08 Creatinine 0.76 mg/dL (0.55-1.02) 09/25/18 06:08 Est GFR (MDRD) Af Amer 107 mL/min (>60) 09/25/18 06:08 Est GFR (MDRD) Non-Af 89 mL/min (>60) 09/25/18 06:08 BUN/Creatinine Ratio 9.2 RATIO (10-20) L 09/25/18 06:08 Glucose 141 mg/dL (74-106) H 09/25/18 06:08 Weight used for dosin kg Estimated Creatinine Clearance: 67 mL/min Goal Trough: 15-20 mcg/mL Pharmacy Plan for Drug Dosing: Initial 2000mg IV x1 followed by 1500mg IV q12h vancomycin and trough prior to 4th dose per policy. Pharmacy Service will continue to monitor and adjust dosing as required. Follow-Up Labs: Trough Vancomycin - 09/26 @ [id number]
[2018-09-25] MEDS: Enoxaparin 120 MG/0.8 ML Syringe SC ×2 (12:08→21:28)
[2018-09-26] VITALS (8 sets, daily range): BP systolic 153–168; BP diastolic 88–102; PULSE 97–109; RESP 18–20; TEMP 36.8–37.2; O2SAT 96–100
[2018-09-26 05:13] LABS: Absolute Lymphocyte Count 1.83 X10^3/ul (0.83-4.51); Absolute Neutrophil Count 6.9 X10^3/uL (2.0-7.7); Basophil# 0.02 X10^3/uL; Basophil% 0.2 % (0-1); Eosinophil# 0.04 X10^3/uL; Eosinophils% 0.4 % (0-5); Hematocrit 33.4 % (37-47); Hemoglobin 11.2 g/dl (12.0-15.0); Lymphocyte # 1.83 X10^3/ul (4.0); Lymphocyte % 18.8 % (19-41); Mean Corp Hgb Conc 33.5 g/gl (32-36); Mean Corpuscular Hgb 29.9 pg (27.0-32.0); Mean Corpuscular Volume 89.3 fL (81-99); Mean Platelet Vol. 9.7 fl (6.2-12.0); Monocyte# 0.93 X10^3/uL; Monocyte% 9.6 % (0-10); Neutrophil # 6.86 X10^3/uL (2.7-7.7); Neutrophil % 70.5 % (47-70); Platelet Count 192 K/mm3 (150-450); RBC Distribution Width CV 13.7 % (11.6-14.6); RBC Distribution Width SD 43.4 fl (35.1-43.9); Red Blood Count 3.74 M/mm3 (4.2-5.4); White Blood Count 9.7 K/mm3 (4.4-11.0)
[2018-09-26] MEDS: Acetaminophen 325 MG Tablet 650 MG PO (05:17)
[2018-09-26 05:22] LABS: POSITIVE COUNT NO; POSITIVE DIFFERENTIAL NO; POSITIVE MORPHOLOGY NO
[2018-09-26 05:23] LABS: Anion Gap 11 (5-15); BUN 6 mg/dL (7-18); BUN/Creat Ratio 8.9 RATIO (10-20); Calcium,Total 8.1 mg/dL (8.5-10.1); Chloride 108 mmol/L (98-107); Creatinine, Serum 0.68 mg/dL (0.55-1.02); EST Glomerular Filtration Rate 102 mL/min (>60); Est Glom Filt Rate - Afr Amer 124 mL/min (>60); Estimated Creatinine Clearance 102.95 ml/min; Glucose 102 mg/dL (74-106); Potassium 3.4 mmol/L (3.5-5.1); Sodium Level 141 mmol/L (136-145); Vancomycin, Trough Level 5.2 ug/mL (5.0-15.0)
--- NOTE | 2018-09-26 05:35 | PCM.RX.CS ---
Consult Pharmacy has been consulted to manage selected antiobiotic: Vancomycin Type of Consult: Follow-up Suspected Infection: Sepsis Labs: Sodium 141 mmol/L (136-145) 09/26/18 04:40 Potassium 3.4 mmol/L (3.5-5.1) L 09/26/18 04:40 Chloride 108 mmol/L (98-107) H 09/26/18 04:40 Carbon Dioxide 22.0 mmol/L (21.0-32.0) 09/26/18 04:40 Anion Gap 11 (5-15) 09/26/18 04:40 BUN 6 mg/dL (7-18) L 09/26/18 04:40 Creatinine 0.68 mg/dL (0.55-1.02) 09/26/18 04:40 Est GFR (MDRD) Af Amer 124 mL/min (>60) 09/26/18 04:40 Est GFR (MDRD) Non-Af 102 mL/min (>60) 09/26/18 04:40 BUN/Creatinine Ratio 8.9 RATIO (10-20) L 09/26/18 04:40 Glucose 102 mg/dL (74-106) 09/26/18 04:40 Vancomycin Trough 5.2 ug/mL (5.0-15.0) 09/26/18 04:40 Goal Trough: 15-20 mcg/mL Pharmacy Plan for Drug Dosing: Pharmacy Service will continue to monitor and adjust dosing as required. Medications Vancomycin HCl 1,500 mg/ (Sodium Chloride) 530 mls @ 250 mls/hr IV Q8H JAZMIN TROUGH 5.2 INCREASE TO Q8H TR 09/27 Follow-Up Labs: Trough Vancomycin Labs to be done on [date and time ordered]: 09/27 @ 1230
--- NOTE | 2018-09-26 07:24 | NM_ITS ---
CLINICAL: 42-year-old female with reported history of shortness of breath. VENTILATION-PERFUSION LUNG SCINTIGRAPHY COMPARISON: CTA of the chest report 09/25/2018, plain film chest radiograph 09/24/2018 FINDINGS: The patient was administered 44.6 mCi 99m Tc DTPA aerosol. The aerosol ventilation study demonstrates minimally heterogeneous ventilation identified throughout the bilateral lung falcon without corresponding radiographic changes defined on plain film chest x-ray dated 09/24/2018. Mild central clumping of the aerosol is noted in the bilateral hemithorax. Following the intravenous administration of 5.7 mCi of 99m Tc MAA the pulmonary perfusion study reveals uniform perfusion throughout both lung falcon. There are no segmental or subsegmental perfusion defects identified. There are no ventilation-perfusion mismatches observed. NM/Lung Scan Vent/Perf IMPRESSION: 1. NORMAL 99m Tc MAA pulmonary perfusion imaging examination, according to PIOPED II interpretive criteria. (Sotsman et al, Radiology 246: 941, 2008 Sotsman et al, J Nucl Med 49: 1741, 2008). 2. Central clumping of the aerosol may be secondary to obstructive airway mechanics and or clinical tachypnea. Electronically Signed: Sergei Mejia DO at 12:23 EDT Tel , Service support ,
--- NOTE | 2018-09-26 11:53 | DCINST_ITS ---
You will use the following diet at home:: Regular Your food should be the consistency of: Regular Your liquids should be the consistency of: Regular/Thin Discharge Activity: Return to Normal Activity Weight Bearing Status: Weight bearing as tolerated Call your doctor if you observe: Fever of 101 or Higher, Swelling in the ankles, Calf discomfort, Uncontrolled pain Instructions: Discharge Instructions for Cellulitis Allergies/Adverse Reactions: Allergies No Known Allergies Allergy (Verified 09/24/18 12:31) Medications to take at Discharge Doxycycline 100 mg PO BID #20 cap 09/26/18 The following prescriptions were given: Doxycycline 100 mg PO BID #20 cap Primary Care Physician: Lora Mckenzie MD [Primary Care Provider] - Please follow up with your Primary Care Physician in: one week Test Results: Test results from this visit will be discussed in further detail at your follow- up appointment, if applicable. Proposed Discharge Date: 09/26/18
--- NOTE | 2018-09-26 12:31 | DS.PCM_ITS ---
Discharge Date and Diagnosis Date of Admission: 09/24/18 Date of Discharge: 09/26/18 - Primary Discharge Diagnosis sepsis due to cellulitis of the right lower extremity hyponatremia Hospital Course and Treatment Imaging Results: 09/26/18 07:24 Lung Scan Vent/Perf [NM] Urgent Operations: None Procedures: None Summary of Care Provided: The patient is a 42 year old F with no significant past medical history. She was admitted to the ED on 09/24/2018 with a 2-day complaint of fever and chills as well as redness and swelling of her right lower extremity. Patient states feve r and chills started and then 1 day ago she noticed the rash on her right lower extremity. Today she noticed that her right lower extremity was red and swollen. She did not notice any discharge. She also had assisted shortness of breath and racing of her heart so she decided to come into the ED. In the ED vitals were significant for temperature of 103.2 Fahrenheit, respiratory rate of 20 and pulse rate of 120. Chest x-ray showed no acute cardiopulmonary process. CMP showed sodium of 131 white cell count was elevated at 14. Lactic acid was 1.5. She was admitted to be managed for sepsis due to cellulitis of the right lower extremity. She was started on IV vancomycin. She had a CT of the right lower extremity done on admission which showed nonspecific anterior dominant soft tissue swelling without focal fluid collection and possible infrapopliteal posterior tibial venous thrombosis. She was therefore given a dose of therapeutic Lovenox. CT angiogram done on account of persistent tachycardia and tachypnea was read as suboptimal enhancement and heterogeneous diminished densities of the pulmonary arteries with embolism versus artifact. Since CT was inconclusive, patient was started on therapeutic Lovenox. She had duplex of her right lower extremity which was negative for any DVT. CT angiogram of the chest was discussed with the radiologist who read her, Dr. Panfilo Glasgow, who stated that even with looking at it again, he will could not say whether it was an artifact or a PE. Imaging was discussed with Dr. Goyal on 09/26/2018 who felt that it was not a PE after review. VQ scan was done on 09/26/2018 which showed normal lung perfusion and low probability for PE. Patient remained stable and Lovenox was discontinued. She was discharged home on 09/26/2018 with a prescription for p.o. doxycycline for 10 days. She is to follow-up with her primary care doctor within 1 week. Patient seen and examined prior to discharge. She felt much better and had no complaints. Tachycardia and tachypnea have resolved. Review of systems otherwise negative. Labs and vitals reviewed. Home medications reviewed and reconciled. o/e: Vital Signs Height 5 ft 6 in Weight: 255 lb 15.307 oz Weight in Pounds 256.0 lbs Pulse Ox 98 Temperature 98.3 F Pulse Rate 99 Respiratory Rate 18 Blood Pressure 153/97 Blood Pressure Position Sitting General: Alert, Oriented x3, Cooperative, No apparent distress HEENT: Atraumatic Oral: Moist Mucosa Neck: Supple, No JVD, Negative Carotid Bruits Lungs: Clear to auscultation, Normal air movement, tachypneic. Cardiovascular: tachycardic, Regular Rhythm, Normal S1, Normal S2, No murmurs Abdomen: Bowel Sounds Present, Soft, Non Tender Extremities: No clubbing, No cyanosis, Capillary Refill Less than 3 Seconds, - - mild edema of RLE Skin: - - erythema and papular rash over her RLE (armstrong and calf) as well as over her right upper thigh as well as swelling have virtually resolved. Musculoskeletal: No Tenderness to Palpation of Joints or Extremities Lymphatic: No Cervical, Supraclavicular, or Inguinal Adenopathy Neurological: Cranial nerves II-XII grossly intact, Neuro grossly intact, Motor Exam 5/5 strength throughout Psych/Mental Status: Normal Affect, Appropriate, Alert and oriented to time, place, person, mood and affect Plan as above. - Physical Exam Vital Signs Temp Pulse Resp BP Pulse Ox 98.3 F 99 18 153/97 H 98 09/26/18 08:07 09/26/18 08:07 09/26/18 08:07 09/26/18 08:07 09/26/18 08:07 Oxygen Delivery Method Room Air Weight: 255 lb 15.307 oz Body Mass Index (BMI) 41.3 Intake and Output for Last 24 Hours 09/24/18 09/25/18 09/26/18 23:59 23:59 23:59 Intake Total 2131 / 2033 3662 / 3662 Output Total 2200 / 2200 Balance 2131 / 2131 2033 / 2033 1462 / 1462 Microbiology Past 72 Hours 09/24/18 12:45 Urine Culture - Final Urine, Clean Catch Mixed Gram Positive Organisms Laboratory Tests Past 24 Hrs 09/26/18 09/26/18 09/26/18 04:40 04:40 04:40 WBC 9.7 RBC 3.74 L Hgb 11.2 L Hct 33.4 L MCV 89.3 MCH 29.9 MCHC 33.5 RDW 13.7 RDW Differential 43.4 Plt Count 192 MPV 9.7 Immature Gran % (Auto) 0.500 Neut % (Auto) 70.5 H Lymph % (Auto) 18.8 L [place] % (Auto) 9.6 Eos % (Auto) 0.4 Baso % (Auto) 0.2 Absolute Neuts (auto) 6.9 Absolute Lymphs (auto) 1.83 Total Counted Not Reportable Sodium 141 Potassium 3.4 L Chloride 108 H Carbon Dioxide 22.0 Anion Gap 11 BUN 6 L Creatinine 0.68 Estim Creat Clear Calc 102.95 Est GFR (MDRD) Af Amer 124 Est GFR (MDRD) Non-Af 102 BUN/Creatinine Ratio 8.9 L Glucose 102 Calcium 8.1 L Vancomycin Trough 5.2 Discharge Diet: No Restrictions Discharge Activity: Return to Normal Activity Weight Bearing Status: Weight bearing as tolerated Call your doctor if you observe: Fever of 101 or Higher, Swelling in the ankles, Calf discomfort, Uncontrolled pain Home Medications: Medications to take at Discharge Doxycycline 100 mg PO BID #20 cap 09/26/18 Following Prescrptions Were Given to Patient: Doxycycline 100 mg PO BID #20 cap Primary Care Physician: Lora Mckenzie MD [Primary Care Provider] - Please follow up with your Primary Care Physician in: one week Patient Instructions: Discharge Instructions for Cellulitis Disposition: Home Minutes spent on discharge:: 40 Patient Condition:: Stable Medical Necessity - Tobacco Use Smoking Status: Former smoker Meaningful Use Info Meaningful Use Diagnoses (Choose all that apply): None applicable Code Visit Inpatient E&M: 40423 Disch Hosp
--- NOTE | 2018-09-26 12:35 | CASEMGMT ---
JUJU MCKEON assessment: Face to Face with patient for initial transition planning/care coordination assessment. JUJU MCKEON introduced self and role at [facility], pt voices understanding and consents to assessment at this time. Pt is lying in bed in no distress at this time. Pt is A/Ox4 at this time and answers all questions appropriately at this time. Care providers, pharmacy, and demographics verified at this time. PCP: [facility] Specialists: Pt states no specialists at this time. [facility]erred [facility] Insurance: MMO Prescription Benefit: MMO Living Will/HPOA: Pt states does not have LW/HPOA and declines info at this time. LNOK: Dania Busby, mother Living Arrangements: Pt states lives with family in a 2 story home and states no concerns at home at this time. Pt states is independent with ADL's at this time. Transportation: Pt states drives self and states no transportation concerns at this time. DME/HHC: Pt states no current DME or need for any at this time. Pt states no hx of HHC or SNF at this time. Pt states no concerns with going home at time of discharge. 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 Pt states does not smoke but does drink occasionally. Pt states no further questions/concerns/needs at this time. CM to follow for any further discharge planning/needs. Advised pt to ask for CM if any further questions/concerns/needs arise, voices understanding. Pt Goal: [place] JUJU MCKEON
== END 2018-09-26 18:11 | disposition home or self-care (01) | DRG 872 ==
LOC: ED 14:28 → PCU 14:49
PROVIDERS: Admitting Provider Student in an Organized Health Care Education/Training Program; Emergency Provider Emergency Medicine; Family Provider Internal Medicine; PCP Internal Medicine; Visit Provider Student in an Organized Health Care Education/Training Program
DX: A41.9 Sepsis, unspecified organism (principal); L03.115 Cellulitis of right lower limb; E87.1 Hypo-osmolality and hyponatremia
CPT/HCPCS: 36415; 71045; 71275; 73701; 78582; 80048; 80053; 80202; 81001; 83036; 83605; 84484; 85025; 85610; 85730; 87040; 87086; 87088; 93005; 93971; 99285; A9540; A9567; J7030; J7040; Q9967; A4216